=== PATIENT | female | born 1985 | race Caucasian/White ===

== ENCOUNTER 2018-11-24 22:19 | Emergency (ER) | payer SELFPAY ==
[~2018-11-24] VITALS: Ht 165.1 cm; Wt 88.1 kg
[2018-11-24 22:31] VITALS: BP 140/69
--- NOTE | 2018-11-24 22:41 | NUR ---
PT TAKEN TO BED 5
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
--- NOTE | 2018-11-24 22:58 | NUR ---
Dr. Graves examining patient.
[2018-11-24] MEDS ORDERED: KETOROLAC 60 MG/2 ML VIAL IM ONE (23:05)
--- NOTE | 2018-11-24 23:16 | NUR ---
PT RETURN FROM RAD
[2018-11-24 23:38] VITALS: BP 134/76
--- NOTE | 2018-11-24 23:38 | NUR ---
Patient discharged with v/s stable. Written and verbal after care instructions given and explained. Patient alert, oriented and verbalized understanding of instructions. with . All questions addressed prior to discharge. ID band removed. Patient advised to follow up with PMD. Rx of MOTRIN 800MG, TRAMADOL HYDROCHLORIDE 50MG AND ROBAXIN 500MG given. Patient educated on indication of medication including possible reaction and side effects. Opportunity to ask questions provided and answered.
== END 2018-11-24 23:38 | disposition home or self-care (01) ==
LOC: MED 22:19
DX: S13.4XXA Sprain of ligaments of cervical spine, initial encounter (principal); M54.5 Low back pain; Z88.0 Allergy status to penicillin; Z91.013 Allergy to seafood; V89.2XXA Person injured in unspecified motor-vehicle accident, traffic, initial encounter; Y93.89 Activity, other specified; Y92.89 Other specified places as the place of occurrence of the external cause; Y99.8 Other external cause status
CPT/HCPCS: 72040; 72100; 81002; 81025; 96372; 99283; J1885